=== PATIENT | female | born 1960 | race African-American/Black ===

== ENCOUNTER 2017-08-20 15:54 | Inpatient (IN) | payer MEDICAID, OTHER ==
[~2017-08-20] VITALS: Ht 170.2 cm; Wt 120.2 kg
[~2017-08-20 15:54] MED LIST: ATARAX25 MG PO; GABAPENTIN100 MG ORAL; IBUPROFEN600 MG PO; KEPPRA500 M4 ORAL; METFORMIN HCL500 MG PO; NORVASC2.5 MG PO; VICODIN 5-5001 EACH PO; [UNRECOGNIZED DRUG - REMARK]; [UNRECOGNIZED DRUG - REMARK]
[2017-08-20] MEDS ORDERED: Sodium Chloride 500ML 500 ML IV ONE (16:12)
--- NOTE | 2017-08-20 16:20 | Emergency Room Report ---
History of Present Illness General Chief Complaint: Seizure Source: Patient Present Illness HPI Patient presents with complaints of seizure activity Patient has been seizure-free for about 9 months she is on multiple medications including Keppra Neurontin and Topamax Patient had a seizure yesterday As she has had them in the past she did not go to the emergency room today she was at a Had several seizures back to back And was sent to the emergency room at this time patient complains of mild headache denies any chest pain or short of breath denies any back or flank pain denies any dysuria frequency Patient reports that 7 days ago she began taking an [id number] vitamin which she reports is 4 and 1 however is unclear regarding the medications name she reports not feeling well since then having sensations of questionable pre- seizure activity Allergies: Coded Allergies: No Known Allergies (Unverified , 03/11/12) Patient History Past Medical History: see triage record Pertinent Family History: none Reviewed Nursing Documentation: PMH: Agreed, PSxH: Agreed Nursing Documentation-PMH Past Medical History: No History, Except For Hx Hypertension: Yes Hx Diabetes: Yes Hx Cancer: Yes - bilateral mastecomy done 2015 Hx Gastrointestinal Problems: Yes Hx Seizures: Yes Review of Systems All Other Systems: negative except mentioned in HPI Physical Exam Vital Signs Date Time Temp Pulse Resp B/P (MAP) Pulse Ox O2 Delivery O2 Flow Rate FiO2 08/20/17 15:40 98.0 97 20 142/92 97 Room Air 98.1 Sp02 EP Interpretation: reviewed, normal General Appearance: well appearing, no apparent distress Head: normocephalic, atraumatic Eyes: bilateral eye PERRL, bilateral eye EOMI ENT: hearing grossly normal, normal pharynx, TMs + canals normal, uvula midline Neck: full range of motion, supple, no meningismus, no bony tend Respiratory: lungs clear, normal breath sounds, no rhonchi, no respiratory distress, no retraction, no accessory muscle use Cardiovascular #1: normal peripheral pulses, regular rate, rhythm, no edema, no gallop, no JVD, no murmur Gastrointestinal: normal bowel sounds, non tender, soft, no mass, no organomegaly, non-distended, no guarding, no hernia, no pulsatile mass, no rebound Genitourinary: no CVA tenderness Musculoskeletal: normal inspection Neurologic: oriented x3, responsive, postmaster III-XII nml as tested, motor strength/ tone normal, sensory intact Psychiatric: mood/affect normal Skin: normal color, no rash, warm/dry, palpation normal Lymphatic: normal inspection, no adenopathy Medical Decision Making Diagnostic Impression: Primary Impression: Epileptic seizure, generalized ER Course Patient has had multiple seizures today Was further medicated in the emergency room Initial workup does not show any obvious acute pathology Patient does not show any focal deficits and given the multiple seizures was admitted for further care Labs Test 08/20/17 16:07 08/20/17 16:34 Urine Color Pale yellow Urine Appearance Clear Urine pH 7 (4.5-8.0) Urine Specific [place] 1.005 (1.005-1.035) Urine Protein Negative (NEGATIVE) Urine Glucose (UA) Negative (NEGATIVE) Urine Ketones Negative (NEGATIVE) Urine Occult Blood Negative (NEGATIVE) Urine Nitrite Negative (NEGATIVE) Urine Bilirubin Negative (NEGATIVE) Urine Urobilinogen Normal MG/DL (0.0-1.0) Urine Leukocyte Esterase 2+ (NEGATIVE) Urine RBC 0 /HPF (0 - 2) Urine WBC 5-10 /HPF (0 - 2) Urine Squamous Epithelial Cells Moderate /LPF (NONE/OCC) Urine Bacteria Moderate /HPF (NONE) Urine Opiates Screen Negative (NEGATIVE) Urine Barbiturates Screen Negative (NEGATIVE) Phencyclidine (PCP) Screen Negative (NEGATIVE) Urine Amphetamines Screen Negative (NEGATIVE) Urine Benzodiazepines Screen Negative (NEGATIVE) Urine Cocaine Screen Negative (NEGATIVE) Urine Marijuana (THC) Screen Negative (NEGATIVE) White Blood Count 5.6 K/UL (4.8-10.8) Red Blood Count 4.75 M/UL (4.20-5.40) Hemoglobin 13.7 G/DL (12.0-16.0) Hematocrit 40.3 % (37.0-47.0) Mean Corpuscular Volume 85 FL (80-99) Mean Corpuscular Hemoglobin 28.8 PG (27.0-31.0) Mean Corpuscular Hemoglobin Concent 33.9 G/DL (32.0-36.0) Red Cell Distribution Width 14.2 % (11.6-14.8) Platelet Count 232 K/UL (150-450) Mean Platelet Volume 9.6 FL (6.5-10.1) Neutrophils (%) (Auto) 57.7 % (45.0-75.0) Lymphocytes (%) (Auto) 32.8 % (20.0-45.0) Monocytes (%) (Auto) 5.8 % (1.0-10.0) Eosinophils (%) (Auto) 2.4 % (0.0-3.0) Basophils (%) (Auto) 1.3 % (0.0-2.0) Sodium Level 145 MMOL/L (136-145) Potassium Level 3.9 MMOL/L (3.5-5.1) Chloride Level 108 MMOL/L (98-107) Carbon Dioxide Level 28 MMOL/L (21-32) Anion Gap 9 mmol/L (5-15) Blood Urea Nitrogen 11 mg/dL (7-18) Creatinine 0.9 MG/DL (0.55-1.30) Estimat Glomerular Filtration Rate > 60 mL/min (>60) Glucose Level 94 MG/DL (74-106) Calcium Level 9.5 MG/DL (8.5-10.1) Total Bilirubin 0.3 MG/DL (0.2-1.0) Aspartate Amino Transf (AST/SGOT) 17 U/L (15-37) Alanine Aminotransferase (ALT/SGPT) 25 U/L (12-78) Alkaline Phosphatase 118 U/L (46-116) Total Creatine Kinase 108 U/L (26-140) Creatine Kinase MB 1.8 NG/ML (0.0-3.6) Creatine Kinase MB Relative Index 1.6 Troponin I 0.000 ng/mL (0.000-0.056) Total Protein 7.9 G/DL (6.4-8.2) Albumin 3.6 G/DL (3.4-5.0) Globulin 4.3 g/dL Albumin/Globulin Ratio 0.8 (1.0-2.7) Rhythm Strip Diag. Results EP Interpretation: yes Rate: 67 Rhythm: NSR, no PVC's, no ectopy Chest X-Ray Diagnostic Results Chest X-Ray Diagnostic Results : Chest X-Ray Ordered: Yes # of Views/Limited/Complete: 1 View Indication: Chest Pain EP Interpretation: Yes Interpretation: no consolidation, no effusion, no pneumothorax Impression: No acute disease Electronically Signed by: Juan Pike, DO CT/MRI/US Diagnostic Results CT/MRI/US Diagnostic Results : Impression CT head no acute disease Last Vital Signs Date Time Temp Pulse Resp B/P (MAP) Pulse Ox O2 Delivery O2 Flow Rate FiO2 08/20/17 15:58 98 20 Room Air 08/20/17 15:40 98.0 142/92 97 98.1 Status: improved Disposition: ADMITTED INPATIENT Condition: Serious Juan Pike DO Aug 20, 2017 16:19
[2017-08-20 16:30] VITALS: BP 131/80
[2017-08-20 16:39] LABS: APPEARANCE,URINE CLEAR; BILIRUBIN, URINE NEGATIVE (NEGATIVE); COLOR,URINE PALE YELLOW; GLUCOSE, URINE (UA) NEGATIVE (NEGATIVE); KETONES,URINE NEGATIVE (NEGATIVE); LEUKOCYTE ESTERASE ,URINE 2+ (NEGATIVE); NITRITE,URINE NEGATIVE (NEGATIVE); PH,URINE 7 (4.5-8.0); PROTEIN,URINE NEGATIVE (NEGATIVE); UROBILINOGEN,URINE NORMAL MG/DL (0.0-1.0)
[2017-08-20 16:53] LABS: BASOPHILS % (AUTO) 1.3 % (0.0-2.0); EOSINOPHILS % (AUTO) 2.4 % (0.0-3.0); HEMATOCRIT 40.3 % (37.0-47.0); HEMOGLOBIN 13.7 G/DL (12.0-16.0); LYMPHOCYTES % (AUTO) 32.8 % (20.0-45.0); MEAN CORPUSCULAR VOLUME 85 FL (80-99); MONOCYTES % (AUTO) 5.8 % (1.0-10.0); NEUTROPHILS % (AUTO) 57.7 % (45.0-75.0); PLATELET COUNT 232 K/UL (150-450); RED BLOOD COUNT 4.75 M/UL (4.20-5.40); RED CELL DISTRIBUTION WIDTH 14.2 % (11.6-14.8); WHITE BLOOD COUNT 5.6 K/UL (4.8-10.8)
[2017-08-20] MEDS ORDERED: Acetaminophen 500mg (ES) tab ORAL ONE (17:02)
[2017-08-20] MEDS ORDERED: LORazepam Inj 2mg/ml 1ml IV ONE (17:15)
[2017-08-20] MEDS ORDERED: levETIRAcetam 500mg/NS100ml 100 ML IVPB ONE (17:15)
[2017-08-20] MEDS ORDERED: cefTRIAXone 1 GM in NS 55 ML IVPB ONE (17:30)
[2017-08-20 17:36] LABS: ANION GAP 9 mmol/L (5-15); BLOOD UREA NITROGEN 11 mg/dL (7-18); CALCIUM 9.5 MG/DL (8.5-10.1); CARBON DIOXIDE 28 MMOL/L (21-32); CHLORIDE 108 MMOL/L (98-107); CREATININE 0.9 MG/DL (0.55-1.30); POTASSIUM 3.9 MMOL/L (3.5-5.1); SODIUM 145 MMOL/L (136-145)
[2017-08-20 17:56] LABS: ALANINE AMINOTRANSFERASE 25 U/L (12-78); ALBUMIN 3.6 G/DL (3.4-5.0); ALBUMIN/GLOBULIN RATIO 0.8 (1.0-2.7); ASPARTATE AMINO TRANSFERASE 17 U/L (15-37); BILIRUBIN,TOTAL 0.3 MG/DL (0.2-1.0); CREATINE KINASE 108 U/L (26-140)
[2017-08-20 17:57] LABS: ALKALINE PHOSPHATASE 118 U/L (46-116)
[2017-08-20 18:07] LABS: CKMB 1.8 NG/ML (0.0-3.6)
[2017-08-20 18:30] VITALS: BP 140/79
[2017-08-20] MEDS ORDERED: GABAPENTIN600 MG ORAL (18:59)
[2017-08-20] MEDS ORDERED: MONTELUKAST SOD10 MG ORAL (18:59)
[2017-08-20] MEDS ORDERED: ALBUTEROL SULF8.5 GM INH (18:59)
[2017-08-20] MEDS ORDERED: METOPROLOL TAR100 MG ORAL (18:59)
[2017-08-20] MEDS ORDERED: VITAMIN D250000 UNI1 ORAL (18:59)
[2017-08-20] MEDS ORDERED: AMITRIPTYLINE25 MG ORAL (18:59)
[2017-08-20] MEDS ORDERED: METFORMIN HCL1000 M1 ORAL (18:59)
[2017-08-20] MEDS ORDERED: OMEPRAZOLE20 M2 ORAL (18:59)
[2017-08-20] MEDS ORDERED: MEGARED OMEGA-1 EAC1 PO (18:59)
[2017-08-20] MEDS ORDERED: TOPIRAMATE100 MG ORAL (18:59)
[2017-08-20] MEDS ORDERED: VITAMIN B-12500 MCG ORAL (18:59)
[2017-08-20] MEDS ORDERED: PROAIR HFA8.5 GM INH (18:59)
[2017-08-20] MEDS ORDERED: QVAR7.3 GM INH (18:59)
[2017-08-20] MEDS ORDERED: DOCUSATE SODIU100 MG ORAL (18:59)
[2017-08-20] MEDS ORDERED: ZYRTEC10 MG ORAL (18:59)
[2017-08-20] MEDS ORDERED: ASPIRIN EC81 MG ORAL (18:59)
[2017-08-20] MEDS ORDERED: LEVETIRACETAM500 MG ORAL (18:59)
[2017-08-20 19:04] VITALS: BP 142/89
[2017-08-20] MEDS ORDERED: Zolpidem 5mg tab ORAL PRN (20:15)
[2017-08-20] MEDS ORDERED: Docusate 100mg cap ORAL PRN (20:15)
[2017-08-20] MEDS ORDERED: LORazepam Inj 2mg/ml 1ml IV PRN (20:15)
[2017-08-20] MEDS: NovoLOG Insulin Flexpen SUBQ SCH (22:12)
[2017-08-21] VITALS: BP 119/79
[2017-08-21] MEDS ORDERED: metFORMIN 500mg tab ORAL SCH (06:30)
[2017-08-21] MEDS: NovoLOG Insulin Flexpen SUBQ SCH ×4 (06:54→21:51)
[2017-08-21] MEDS: Qvar 40mcg Inhaler 6.8 gm INH SCH ×2 (07:39→19:20)
[2017-08-21 08:01] LABS: ALANINE AMINOTRANSFERASE 23 U/L (12-78); ALBUMIN 2.9 G/DL (3.4-5.0); ALBUMIN/GLOBULIN RATIO 0.7 (1.0-2.7); ALKALINE PHOSPHATASE 117 U/L (46-116); ANION GAP 10 mmol/L (5-15); ASPARTATE AMINO TRANSFERASE 18 U/L (15-37); BILIRUBIN,TOTAL 0.3 MG/DL (0.2-1.0); BLOOD UREA NITROGEN 14 mg/dL (7-18); CALCIUM 8.9 MG/DL (8.5-10.1); CARBON DIOXIDE 24 MMOL/L (21-32); CHLORIDE 106 MMOL/L (98-107); CHOLESTEROL 185 MG/DL (< 200); CREATININE 0.9 MG/DL (0.55-1.30); HDL CHOLESTEROL 72 MG/DL (40-60); POTASSIUM 3.8 MMOL/L (3.5-5.1); SODIUM 140 MMOL/L (136-145); TRIGLYCERIDES 116 MG/DL (30-150)
[2017-08-21] MEDS: Aspirin EC 81mg tab ORAL SCH (08:59)
[2017-08-21] MEDS: Montelukast 10mg tablet ORAL SCH (08:59)
[2017-08-21] MEDS: Vitamin B-12 500mcg tab ORAL SCH (08:59)
[2017-08-21 09:00] VITALS: BP 139/79
--- NOTE | 2017-08-21 10:18 | Diagnostic Imaging Report ---
Indication: Chest pain Technique: XRAY Chest 1v Comparison: None Findings: Low lung volumes exaggerate heart size and pulmonary markings. Heart appears borderline enlarged. There is no definite focal airspace consolidation, pleural effusion or pneumothorax. No acute osseous abnormality seen. There are degenerative changes of the spine. Surgical clips noted in the bilateral axilla. Impression: Limited exam as low lung volumes. Question borderline cardiomegaly and mild vascular congestion, possibly artifactual. Repeat exam with improved inspiratory effort recommended for more reliable assessment.
[2017-08-21 12:00] VITALS: BP 128/82
--- NOTE | 2017-08-21 13:26 | Diagnostic Imaging Report ---
Indication: Seizure Technique: Continuous helical CT scanning of the head was performed utilizing automated exposure control without intravenous contrast material. Axial and coronal reconstructions were obtained. Comparison: None CT dose: Total DLP 1340.49 mGycm; CTDI vol 70.38 mGy Findings: There is no acute intracranial hemorrhage, mass effect or cortical edema. The ventricles, cisterns and sulci are within normal limits for age. Visualized mastoid air cells and paranasal sinuses are unremarkable. No focal lesions of the bony calvarium or soft tissues of the scalp are seen. Midline parafalcine dural calcifications are noted without significant mass effect. IMPRESSION: No evidence of acute intracranial hemorrhage, mass effect or cortical edema. MRI may be obtained for more sensitive evaluation as clinically indicated. This corresponds with the statrad preliminary report. The CT scanner at [facility] is accredited by the [employer] and the scans are performed using protocols designed to limit radiation exposure to as low as reasonably achievable to attain images of sufficient resolution adequate for diagnostic evaluation.
--- NOTE | 2017-08-21 15:57 | History & Physical ---
History and Physical History & Physicial HP dictated # [id number] ROX TAYLOR Aug 21, 2017 15:57
--- NOTE | 2017-08-21 16:41 | Neurology Progress Note ---
Objective Physical Exam Last Vital Signs Date Time Temp Pulse Resp B/P (MAP) Pulse Ox O2 Delivery O2 Flow Rate FiO2 08/21/17 13:27 97.9 08/21/17 12:00 83 20 128/82 97 08/21/17 07:39 Room Air 21 Laboratory Tests Test 08/21/17 05:10 Sodium Level 140 MMOL/L (136-145) Potassium Level 3.8 MMOL/L (3.5-5.1) Chloride Level 106 MMOL/L (98-107) Carbon Dioxide Level 24 MMOL/L (21-32) Anion Gap 10 mmol/L (5-15) Blood Urea Nitrogen 14 mg/dL (7-18) Creatinine 0.9 MG/DL (0.55-1.30) Estimat Glomerular Filtration Rate > 60 mL/min (>60) Glucose Level 159 MG/DL (74-106) H Hemoglobin A1c 7.8 % (4.3-6.0) H Calcium Level 8.9 MG/DL (8.5-10.1) Total Bilirubin 0.3 MG/DL (0.2-1.0) Aspartate Amino Transf (AST/SGOT) 18 U/L (15-37) Alanine Aminotransferase (ALT/SGPT) 23 U/L (12-78) Alkaline Phosphatase 117 U/L (46-116) H Total Protein 6.8 G/DL (6.4-8.2) Albumin 2.9 G/DL (3.4-5.0) L Globulin 3.9 g/dL Albumin/Globulin Ratio 0.7 (1.0-2.7) L Triglycerides Level 116 MG/DL (30-150) Cholesterol Level 185 MG/DL (< 200) LDL Cholesterol 103 mg/dL (<100) H HDL Cholesterol 72 MG/DL (40-60) H Cholesterol/HDL Ratio 2.6 (3.3-4.4) L Impression/Recommendations Problems: (1) Seizure disorder Status: unchanged Recommendations #[id number] MARY BETH MODI Aug 21, 2017 16:41
[2017-08-21] MEDS: metFORMIN 500mg tab ORAL SCH (16:46)
[2017-08-21] MEDS ORDERED: LORazepam Inj 2mg/ml 1ml IV PRN (19:45)
--- NOTE | 2017-08-21 23:00 | History and Physical Report ---
DATE OF ADMISSION: 08/20/2017 CHIEF COMPLAINT: Multiple seizures. HISTORY OF PRESENT ILLNESS: This is a 57-year-old female, with history of seizures. The patient said that couple of weeks ago, she had a seizure and again two days prior to admission, yesterday, on the day of admission. Finally, paramedics came and brought her to the emergency room. The patient was admitted for further care. PAST MEDICAL HISTORY: Includes history of diabetes mellitus. The patient was on insulin for a while, but then she lost a lot of weight and she gave up her insulin, but recently she went back on insulin. She said that she was in the hospital with pneumonia and they put her on steroids and that is when the sugar became uncontrolled again. She is also taking metformin in addition to insulin. ALLERGIES: No known drug allergies. SOCIAL HISTORY: The patient lives at home. No history of smoking or alcohol abuse. REVIEW OF SYSTEMS: Just positive for back pain, which she has had for a couple of months now and it prevents her from sleeping. PHYSICAL EXAMINATION: GENERAL: The patient is a pleasant female, in no acute distress. VITAL SIGNS: Blood pressure 128/82, pulse 83, respirations 20, and temperature 97.9. HEENT: [place] conjunctivae. Anicteric sclerae. NECK: Supple. LUNGS: Clear to auscultation. HEART: S1 and S2 without murmurs or rubs. ABDOMEN: Soft and nontender. EXTREMITIES: No cyanosis or edema. LABORATORY FINDINGS: The chemistry panel shows serum sodium 140, potassium 3.8, chloride 106, CO2 24, BUN is 14, and creatinine 0.9. Hemoglobin A1c of 7.8. LDL is 103. HDL of 72. Triglycerides 116. Albumin is 2.9. UA shows 5 to 10 wbc's per high-power field and moderate bacteria. ASSESSMENT: This is a 57-year-old female, who was admitted with repeated seizures. She has also diabetes, which is uncontrolled with some high hemoglobin A1c. There is also urinary tract infection at this time. PLAN: The patient's urine culture will be checked. Neurology consultation will be obtained for seizures. The patient will be on p.r.n. Ativan for any seizure activity in addition to her regular medications. Antibiotics will be started. Antonino Antonio M.D. DR: SHANTA JOB#: [id number] CC: ALIDA
[2017-08-22] VITALS (7 sets, daily range): BP systolic 117–130; BP diastolic 69–82
--- NOTE | 2017-08-22 00:15 | Consultation ---
DATE OF CONSULTATION: 08/21/2017 NEUROLOGICAL CONSULTATION CONSULTING PHYSICIAN: Marcus Shore M.D. REQUESTING PHYSICIAN: Antonino Antonio M.D. HISTORY OF PRESENT ILLNESS: The patient is a 57-year-old lady seen in neurological consultation to evaluate exacerbation of seizures. The patient informed me that she started to develop seizures in a year of 2012 just after having a bilateral mastectomy done. Her last seizure was approximately a year go. The patient is maintained on Topamax 200 mg a day, Keppra 2000 mg a day, and gabapentin 2400 mg daily with no changes in doses lately and she was taking medication on time. She developed exacerbation of seizures with first episode occurred while she was at a . She feels that she had another two more episodes. Her episodes are described as sudden onset of left side of the face twisting to the left. She has staring spell and then she had neck twisting to the left side and body started to shake. During these episodes, she has no full complete loss of consciousness. She still feels foggy, but remembers some of it. She has time to sit down and to protect herself from falling. No urine or bowel incontinence. Episodes are quite stereotypical although in the past, she would have frequent episodes of only body shake without loss of consciousness and what is felt to be epileptic in origin, but since she started on Topamax, these type of episodes stopped. As she was arrived to emergency room, she reported that a week ago, she was started on ngae-uqx-kztyioj vitamin supplements, but there was no changes in her treatment. Otherwise, she was complaining of mild headache. Her vital signs were stable. Blood pressure 142/92 and temperature 98.0. CAT scan of the brain was negative. No pathology detected. Her laboratory work revealed normal CBC study. Chemistry panel was unremarkable except blood sugar 159 and alkaline phosphatase 118. Her CBC study was normal and toxicology panel was negative. Chest x-ray, questionable borderline cardiomegaly, mild vascular congestion. PAST MEDICAL HISTORY: History of breast CA and required bilateral mastectomy. She has hypertension, diabetes type 2, degenerative joint disease, and severe right knee pain. MEDICATIONS: The treatment included amlodipine, Elavil 25 at bedtime, albuterol, and aspirin. Supplements, vitamin B12 and vitamin D. She is on Neurontin 1200 mg b.i.d., ibuprofen 600 mg t.i.d., Keppra 1000 b.i.d., metformin 1000 daily, metoprolol, montelukast, omeprazole, and Topamax 100 mg b.i.d. ALLERGIES: None reported. SOCIAL HISTORY: No alcohol. No drug abuse. Nonsmoker. FAMILY HISTORY: Noncontributory. REVIEW OF SYSTEMS: A 12-point review of symptom was obtained was negative except those in HPI. Currently, she is with mild headaches and muscle aches in upper back and neck. She has unsteady gait since she had mastectomies. Denies chest pain or palpitations. No respiratory problems. Denies abdominal pain or discomfort. PHYSICAL EXAMINATION: GENERAL: A well-developed, moderately obese female, not in acute distress, lying comfortably in bed. VITAL SIGNS: Stable. She is afebrile. HEENT: Head normocephalic. No evidence of trauma. Eyes, ears, and throat are clear. NECK: Supple. No meningeal signs. MUSCULOSKELETAL EXAMINATION: Unremarkable. There is no deformities. Peripheral pulses 1+ and symmetric. MENTAL STATUS: Alert and oriented x3 with no evidence of aphasia or apraxia. Cognitive function normal. CRANIAL NERVE II: Pupils both responding to light and accommodation. Extraocular movement intact. No nystagmus. CRANIAL NERVE V: Normal corneal responses. CRANIAL NERVE VII: No facial asymmetry. CRANIAL NERVE VIII: Normal hearing. CRANIAL NERVES IX THROUGH XII: Within normal limits. MOTOR EXAMINATION: Normal muscle tone. Strength 5/5 in all extremities. No involuntary movement. Deep tendon reflexes 1+ and symmetric with downgoing toes on both sides. SENSORY EXAM: Normal to pinprick and light touch. GAIT: Not tested, but reported able to ambulate without assistance and using cane. IMPRESSION: 1. Chronic partial complex seizure disorder exacerbation. 2. Hypertension. 3. Diabetes type 2. 4. Degenerative joint disease. 5. Breast cancer status post bilateral mastectomy. RECOMMENDATIONS: Increase Topamax up to 200 mg b.i.d. Continue with Keppra 2000 mg daily. Observe for any paroxysmal events. Pain management with Neurontin, Motrin, and Tylenol. Thank you for allowing me to see this interesting patient in neurological consultation. Marcus Shore M.D. DR: JEANNETTE JOB#: [id number] CC:
[2017-08-22] MEDS: sitaGLIPtin 50mg tab ORAL SCH (06:45)
[2017-08-22] MEDS: NovoLOG Insulin Flexpen SUBQ SCH ×4 (06:47→20:56)
[2017-08-22] MEDS: Vitamin B-12 500mcg tab ORAL SCH (10:01)
[2017-08-22] MEDS: metFORMIN 500mg tab ORAL SCH ×2 (10:01→16:56)
[2017-08-22] MEDS: Aspirin EC 81mg tab ORAL SCH (10:01)
[2017-08-22] MEDS: Montelukast 10mg tablet ORAL SCH (10:01)
[2017-08-22] MEDS: Qvar 40mcg Inhaler 6.8 gm INH SCH ×2 (10:15→18:41)
--- NOTE | 2017-08-22 10:47 | Neurology Progress Note ---
Interim History Interim History ROS Limited/Unobtainable: No Complaints: weakness tiredness last nite x1 sz given Ativan 1mg Events: in bed drowsy Objective Physical Exam Last Vital Signs Date Time Temp Pulse Resp B/P (MAP) Pulse Ox O2 Delivery O2 Flow Rate FiO2 08/22/17 10:02 86 117/69 08/22/17 10:00 97.7 08/22/17 08:00 20 95 08/22/17 04:00 Room Air 08/21/17 19:20 21 General: well developed, well nourished, no acute distress Head: normocophalic, atraumatic Neck: no rigidity EENT: benign Neurologic Exam Mental Status: oriented x4, normal cognition, other - drowsy Speech: normal speech, no dysarthia Language: normal language, no aphasia Cranial Nerve II: fundus normal, visual vega, no papilledema Cranial Nerves III, IV, : PERRLA, EOMI, pupils Cranial Nerve V: normal facial sensations, temporales function normal, masseters function normal, pterygoids function normal Cranial Nerve VII: no facial asymmetry, normal facial expressions Cranial Nerve VIII: normal hearing, no nystagmus Cranial Nerve IX: normal palate elevation, gag response Cranial Nerve X: no voice hoarseness Cranial Nerve XI: SCM symmetric, trapezii function normal Cranial Nerve XII: tongue midline, no tongue atrophy/fasciculations Motor System: normal muscle tone, strength 5/5, no involuntary movement, no muscle wasting Sensory: normal pinprick, normal light touch, normal position sense, normal graphesthesia Coordination: normal finger to nose bilaterally, normal heel to stone bilaterally, negative Romberg test Deep Tendon Reflexes: 0 bicep (L), 0 bicep (R), 0 tricep (L), 0 tricep (R), 0 brachioradialis (L), 0 brachioradialis (R), 0 knee (L), 0 knee (R), 0 ankle (L) , 0 ankle (R) Reflexes: flexor plantar (L), flexor plantar (R) Stance: normal, other Gait: stable, normal regular, heel + toe gait, other Impression/Recommendations Problems: (1) Seizure disorder Status: unchanged Recommendations #[id number] topamax 200mg bid keppra 1250 bid ativan 1mg q 2hr prn d/w attending MARY BETH MODI Aug 22, 2017 10:47
--- NOTE | 2017-08-22 11:22 | General Progress Note ---
Assessment/Plan Assessment/Plan adjust seizure meds start Cipro Discussed with Dr Shore Endocrine consult Subjective Allergies: Coded Allergies: No Known Allergies (Unverified , 03/11/12) Subjective had seizures last night Objective Last 24 Hour Vital Signs Date Time Temp Pulse Resp B/P (MAP) Pulse Ox O2 Delivery O2 Flow Rate FiO2 08/22/17 10:02 86 117/69 08/22/17 10:02 86 117/69 08/22/17 10:00 97.7 08/22/17 08:00 97.7 86 20 117/69 95 97.7 08/22/17 04:00 97.2 80 18 121/75 94 Room Air 97.2 08/22/17 00:00 97.6 77 16 130/76 97 97.6 08/21/17 21:48 88 138/85 08/21/17 19:20 84 18 98 Room Air 21 08/21/17 19:20 98 Room Air 21 08/21/17 19:20 84 18 98 Room Air 21 08/21/17 13:27 97.9 08/21/17 12:28 97.9 08/21/17 12:00 97.9 83 20 128/82 97 97.9 Intake and Output 08/21/17 08/22/17 19:00 07:00 Intake Total 480 ml Balance 480 ml Intake Oral 480 ml # Voids 3 4 Height (Feet): 5 Height (Inches): 7.00 Weight (Pounds): 265 Cardiovascular: normal rate Respiratory/Chest: lungs clear Edema: no edema noted ROX Castillo 19, 2018 11:22
[2017-08-22] MEDS: Topiramate 100mg tab ORAL SCH ×2 (11:48→20:55)
[2017-08-23 03:31] VITALS: BP 126/68
[2017-08-23] MEDS: sitaGLIPtin 50mg tab ORAL SCH (05:42)
[2017-08-23] MEDS: NovoLOG Insulin Flexpen SUBQ SCH ×4 (05:43→20:05)
[2017-08-23 07:46] LABS: BASOPHILS % (AUTO) 0.7 % (0.0-2.0); EOSINOPHILS % (AUTO) 3.2 % (0.0-3.0); HEMATOCRIT 36.8 % (37.0-47.0); HEMOGLOBIN 12.5 G/DL (12.0-16.0); LYMPHOCYTES % (AUTO) 46.7 % (20.0-45.0); MEAN CORPUSCULAR VOLUME 86 FL (80-99); MONOCYTES % (AUTO) 6.7 % (1.0-10.0); NEUTROPHILS % (AUTO) 42.7 % (45.0-75.0); PLATELET COUNT 202 K/UL (150-450); RED BLOOD COUNT 4.28 M/UL (4.20-5.40); RED CELL DISTRIBUTION WIDTH 14.1 % (11.6-14.8); WHITE BLOOD COUNT 4.6 K/UL (4.8-10.8)
[2017-08-23] MEDS: Aspirin EC 81mg tab ORAL SCH (08:01)
[2017-08-23] MEDS: Vitamin B-12 500mcg tab ORAL SCH (08:02)
[2017-08-23] MEDS: Topiramate 100mg tab ORAL SCH ×2 (08:02→20:46)
[2017-08-23 08:03] LABS: ANION GAP 7 mmol/L (5-15); BLOOD UREA NITROGEN 12 mg/dL (7-18); CALCIUM 8.6 MG/DL (8.5-10.1); CARBON DIOXIDE 27 MMOL/L (21-32); CHLORIDE 108 MMOL/L (98-107); CREATININE 0.8 MG/DL (0.55-1.30); POTASSIUM 3.5 MMOL/L (3.5-5.1); SODIUM 142 MMOL/L (136-145)
[2017-08-23] MEDS: Montelukast 10mg tablet ORAL SCH (08:03)
[2017-08-23 08:08] VITALS: BP 126/82
[2017-08-23] MEDS: Qvar 40mcg Inhaler 6.8 gm INH SCH ×2 (08:23→18:00)
[2017-08-23] MEDS: metFORMIN 500mg tab ORAL SCH ×2 (09:00→17:08)
[2017-08-23 12:00] VITALS: BP 132/80
--- NOTE | 2017-08-23 12:47 | Neurology Progress Note ---
Interim History Interim History ROS Limited/Unobtainable: No Complaints: feel better Events: no sz noted Objective Physical Exam Last Vital Signs Date Time Temp Pulse Resp B/P (MAP) Pulse Ox O2 Delivery O2 Flow Rate FiO2 08/23/17 12:00 98.0 81 15 132/80 98 98.0 08/23/17 08:26 Room Air 21 Laboratory Tests Test 08/23/17 05:25 White Blood Count 4.6 K/UL (4.8-10.8) L Red Blood Count 4.28 M/UL (4.20-5.40) Hemoglobin 12.5 G/DL (12.0-16.0) Hematocrit 36.8 % (37.0-47.0) L Mean Corpuscular Volume 86 FL (80-99) Mean Corpuscular Hemoglobin 29.1 PG (27.0-31.0) Mean Corpuscular Hemoglobin Concent 33.9 G/DL (32.0-36.0) Red Cell Distribution Width 14.1 % (11.6-14.8) Platelet Count 202 K/UL (150-450) Mean Platelet Volume 8.8 FL (6.5-10.1) Neutrophils (%) (Auto) 42.7 % (45.0-75.0) L Lymphocytes (%) (Auto) 46.7 % (20.0-45.0) H Monocytes (%) (Auto) 6.7 % (1.0-10.0) Eosinophils (%) (Auto) 3.2 % (0.0-3.0) H Basophils (%) (Auto) 0.7 % (0.0-2.0) Sodium Level 142 MMOL/L (136-145) Potassium Level 3.5 MMOL/L (3.5-5.1) Chloride Level 108 MMOL/L (98-107) H Carbon Dioxide Level 27 MMOL/L (21-32) Anion Gap 7 mmol/L (5-15) Blood Urea Nitrogen 12 mg/dL (7-18) Creatinine 0.8 MG/DL (0.55-1.30) Estimat Glomerular Filtration Rate > 60 mL/min (>60) Glucose Level 145 MG/DL (74-106) H Calcium Level 8.6 MG/DL (8.5-10.1) General: well developed, well nourished, no acute distress Head: normocophalic, atraumatic Neck: no rigidity EENT: benign Neurologic Exam Mental Status: oriented x4, normal cognition, other - drowsy Speech: normal speech, no dysarthia Language: normal language, no aphasia Cranial Nerve II: fundus normal, visual vega, no papilledema Cranial Nerves III, IV, : PERRLA, EOMI, pupils Cranial Nerve V: normal facial sensations, temporales function normal, masseters function normal, pterygoids function normal Cranial Nerve VII: no facial asymmetry, normal facial expressions Cranial Nerve VIII: normal hearing, no nystagmus Cranial Nerve IX: normal palate elevation, gag response Cranial Nerve X: no voice hoarseness Cranial Nerve XI: SCM symmetric, trapezii function normal Cranial Nerve XII: tongue midline, no tongue atrophy/fasciculations Motor System: normal muscle tone, strength 5/5, no involuntary movement, no muscle wasting Sensory: normal pinprick, normal light touch, normal position sense, normal graphesthesia Coordination: normal finger to nose bilaterally, normal heel to stone bilaterally, negative Romberg test Deep Tendon Reflexes: 0 bicep (L), 0 bicep (R), 0 tricep (L), 0 tricep (R), 0 brachioradialis (L), 0 brachioradialis (R), 0 knee (L), 0 knee (R), 0 ankle (L) , 0 ankle (R) Reflexes: flexor plantar (L), flexor plantar (R) Stance: normal, other Gait: stable, normal regular, heel + toe gait, other Impression/Recommendations Problems: (1) Seizure disorder Status: unchanged Recommendations #[id number] topamax 200mg bid keppra 1250 bid ativan 1mg q 2hr prn d/w staff ok d/c home MARY BETH MODI Aug 23, 2017 12:47
--- NOTE | 2017-08-23 14:44 | General Progress Note ---
Assessment/Plan Assessment/Plan adjust seizure meds start Cipro Discussed with Dr Shore Endocrine consult start Celebrex Subjective Allergies: Coded Allergies: No Known Allergies (Unverified , 03/11/12) Subjective C/O back pain Objective Last 24 Hour Vital Signs Date Time Temp Pulse Resp B/P (MAP) Pulse Ox O2 Delivery O2 Flow Rate FiO2 08/23/17 12:00 98.0 81 15 132/80 98 98.0 08/23/17 09:00 98.1 08/23/17 08:26 82 18 97 Room Air 21 08/23/17 08:25 81 18 97 Room Air 21 08/23/17 08:08 98.1 82 18 126/82 97 Room Air 98.1 08/23/17 08:02 78 126/68 08/23/17 08:01 97.3 08/23/17 08:01 78 126/68 08/23/17 03:31 97.3 78 20 126/68 93 Room Air 97.3 08/22/17 23:24 97.3 83 20 126/70 96 Room Air 97.3 08/22/17 20:54 98 123/77 08/22/17 19:17 97.2 98 20 123/77 95 Room Air 97.2 08/22/17 18:42 94 Room Air 21 08/22/17 18:41 97 18 94 Room Air 21 08/22/17 18:41 97 18 94 Room Air 21 08/22/17 15:52 98.1 69 18 125/82 97 98.1 Intake and Output 08/22/17 08/23/17 19:00 07:00 Intake Total 570 ml Balance 570 ml Intake Oral 570 ml # Voids 3 3 # Bowel Movements 1 Laboratory Tests 08/23/17 05:25: White Blood Count 4.6L, Red Blood Count 4.28, Hemoglobin 12.5, Hematocrit 36.8L , Mean Corpuscular Volume 86, Mean Corpuscular Hemoglobin 29.1, Mean Corpuscular Hemoglobin Concent 33.9, Red Cell Distribution Width 14.1, Platelet Count 202, Mean Platelet Volume 8.8, Neutrophils (%) (Auto) 42.7L, Lymphocytes ( %) (Auto) 46.7H, Monocytes (%) (Auto) 6.7, Eosinophils (%) (Auto) 3.2H, Basophils (%) (Auto) 0.7, Sodium Level 142, Potassium Level 3.5, Chloride Level 108H, Carbon Dioxide Level 27, Anion Gap 7, Blood Urea Nitrogen 12, Creatinine 0.8, Estimat Glomerular Filtration Rate > 60, Glucose Level 145H, Calcium Level 8.6 Height (Feet): 5 Height (Inches): 7.00 Weight (Pounds): 265 Cardiovascular: normal rate Respiratory/Chest: normal breath sounds Edema: no edema noted Generalized ROX TAYLOR Aug 23, 2017 14:44
[2017-08-23 16:00] VITALS: BP 117/71
[2017-08-23] MEDS: celeBREX 100mg Cap **SURGERY PATIENTS ONLY ORAL SCH (16:18)
--- NOTE | 2017-08-23 16:30 | Consultation ---
DATE OF CONSULTATION: 08/23/2017 ENDOCRINOLOGY CONSULTATION CONSULTING PHYSICIAN: Peter López M.D. REFERRING PHYSICIAN: Antonino Antonio M.D. REASON FOR CONSULTATION: Diabetes management. HISTORY OF PRESENT ILLNESS: The patient is a 57-year-old female with a longstanding history of diabetes, as an outpatient on oral regimen as well as low-dose NPH and regular insulin, presented to the hospital with seizure episode. Endocrinology was consulted in order to assist in the management of diabetes. PAST MEDICAL HISTORY: 1. Type 2 diabetes, managed by metformin and NPH and regular. 2. Seizure disorder. 3. Hypertension. 4. Obesity. ALLERGIES TO MEDICATIONS: None. SOCIAL HISTORY: No smoking, alcohol, or drug use. REVIEW OF SYSTEMS: A 12-point review of systems was performed and pertinent positives and negatives are as mentioned in the history of present illness. PHYSICAL EXAMINATION: GENERAL: She is awake and alert. VITAL SIGNS: Blood pressure 126/68, heart rate 78, respiratory rate of 20, and temperature of 97.3 degrees. HEENT: Pupils are equal and reactive to light and accommodation. Sclerae are anicteric. NECK: No JVD. No thyromegaly. No bruits. LUNGS: Clear. HEART: Regular rate and rhythm. ABDOMEN: Positive bowel sounds. Soft. EXTREMITIES: No clubbing, cyanosis, or edema. LABORATORY VALUES: Sodium 145, potassium 3.9, chloride 108, bicarbonate 28, BUN 11, creatinine 0.9, and glucose of 194. Hemoglobin A1c 7.8. LDL 103 . DIAGNOSES: 1. Seizure disorder. 2. Diabetes, out of control. 3. Obesity. 4. Hypertension. PLAN: The patient diabetes is managed by metformin 500 mg b.i.d. and Januvia 50 mg daily. I will double the dose on both of these agents up to metformin 1000 mg b.i.d. and Januvia 100 mg daily. Continue with NovoLog insulin sliding scale. As an outpatient, I doubt the patient needs to be on insulin. We shall continue with this combination of metformin and Januvia maximum dose. Thank you, Dr. Antonio, for the courtesy of this consultation. Peter López M.D. DR: Amanda JOB#: [id number] CC: ALIDA
--- NOTE | 2017-08-23 18:44 | Cardiology Report ---
APPROVED REPORT EKG Measurement Heart [id number] Normal sinus rhythm Nonspecific T wave abnormality Abnormal ECG
[2017-08-23 19:58] VITALS: BP 134/78
[2017-08-24 04:00] VITALS: BP 130/76
[2017-08-24] MEDS: NovoLOG Insulin Flexpen SUBQ SCH ×3 (05:33→16:26)
--- NOTE | 2017-08-24 07:27 | General Progress Note ---
Assessment/Plan Problem List: (1) Diabetes mellitus ICD Codes: E11.9 - Type 2 diabetes mellitus without complications SNOMED: 28217908 (2) Epileptic seizure, generalized ICD Codes: G40.309 - Generalized idiopathic epilepsy and epileptic syndromes, not intractable, without status epilepticus SNOMED: 99353853 (3) Seizure disorder ICD Codes: G40.909 - Epilepsy, unspecified, not intractable, without status epilepticus SNOMED: 823303713 Assessment/Plan continue Metformin 1000 mg bid + Januvia 100 mg daily NISS only during stay no need for insulin after DC Subjective Allergies: Coded Allergies: No Known Allergies (Unverified , 03/11/12) All Systems: reviewed and negative except above Subjective events noted - interval notes reviewed BG values are stable Objective Last 24 Hour Vital Signs Date Time Temp Pulse Resp B/P (MAP) Pulse Ox O2 Delivery O2 Flow Rate FiO2 08/24/17 04:00 97.8 82 18 130/76 97 97.8 08/23/17 20:02 84 117/71 08/23/17 19:58 97.6 84 18 134/78 96 97.6 08/23/17 19:00 Room Air 08/23/17 19:00 81 18 97 Room Air 21 08/23/17 16:00 97.9 84 18 117/71 98 Room Air 97.9 08/23/17 12:00 98.0 81 15 132/80 98 98.0 08/23/17 09:00 98.1 08/23/17 08:26 82 18 97 Room Air 21 08/23/17 08:25 81 18 97 Room Air 21 08/23/17 08:08 98.1 82 18 126/82 97 Room Air 98.1 08/23/17 08:02 78 126/68 08/23/17 08:01 97.3 08/23/17 08:01 78 126/68 Intake and Output 08/23/17 08/24/17 19:00 07:00 Intake Total 840 ml 340 ml Balance 840 ml 340 ml Intake Oral 840 ml 340 ml # Voids 3 2 Height (Feet): 5 Height (Inches): 7.00 Weight (Pounds): 265 General Appearance: no apparent distress Neck: normal alignment Cardiovascular: normal rate Respiratory/Chest: lungs clear Abdomen: normal bowel sounds Pelvis: normal external exam Edema: no edema noted Arm (L), no edema noted Arm (R), no edema noted Leg (L), no edema noted Leg (R), no edema noted Pedal (L), no edema noted Pedal (R), no edema noted Generalized Objective Current Medications Medications (Trade) Dose Ordered Sig/Edward Route PRN Reason Start Time Stop Time Status Last Admin Dose Admin Acetaminophen (Tylenol) 650 mg Q4H PRN ORAL Mild Pain (Pain Scale 1-3) 08/20/17 20:15 09/19/17 20:14 08/23/17 08:01 Amitriptyline HCl (Elavil) 25 mg BEDTIME ORAL 08/20/17 21:00 09/19/17 20:59 08/23/17 20:00 Amlodipine Besylate (Norvasc) 5 mg DAILY ORAL 08/21/17 09:00 09/20/17 08:59 08/23/17 08:01 Aspirin (Ecotrin) 81 mg DAILY ORAL 08/21/17 09:00 09/20/17 08:59 08/23/17 08:01 Beclomethasone Dipropionate (Qvar 40 Inhaler) 1 puff TWICE A DAY INH 08/21/17 09:00 09/20/17 08:59 08/23/17 08:23 Celecoxib (CeleBREX) 100 mg TWICE A DAY ORAL 08/23/17 16:00 09/22/17 15:59 08/23/17 16:18 Cetirizine HCl (ZyrTEC) 10 mg DAILY ORAL 08/21/17 09:00 09/20/17 08:59 08/23/17 08:01 Ciprofloxacin (Cipro 250mg tab) 250 mg EVERY 12 HOURS ORAL 08/22/17 13:00 08/29/17 12:59 08/23/17 20:00 Cyanocobalamin (Vitamin B-12) 500 mcg DAILY ORAL 08/21/17 09:00 09/20/17 08:59 08/23/17 08:02 Dextrose (Dextrose 50%) STAT PRN IV Hypoglycemia 08/20/17 20:15 09/19/17 20:14 Dextrose (Dextrose 50%) STAT PRN IV Hypoglycemia 08/20/17 20:15 09/19/17 20:14 Docusate Sodium (Colace) 100 mg DAILY PRN ORAL Constipation 08/20/17 20:15 09/19/17 20:14 08/23/17 10:08 Gabapentin (Neurontin) 1,200 mg BID ORAL 08/21/17 09:00 09/20/17 08:59 08/23/17 17:08 Insulin Aspart (NovoLOG) BEFORE MEALS AND HS SUBQ 08/20/17 21:00 09/19/17 20:59 08/24/17 05:33 Lansoprazole (Prevacid) 30 mg BID ORAL 08/22/17 18:00 09/21/17 17:59 08/23/17 17:08 Levetiracetam (Keppra) 1,250 mg TWICE A DAY ORAL 08/22/17 18:00 09/21/17 17:59 08/23/17 17:08 Lorazepam (Ativan 2mg/ml 1ml) 2 mg Q2H PRN IV For Seizures 08/20/17 20:15 08/27/17 20:14 08/21/17 21:02 Metformin HCl (Glucophage) 1,000 mg BID ORAL 08/23/17 09:00 09/22/17 08:59 08/23/17 17:08 Metoprolol Tartrate (Lopressor) 100 mg EVERY 12 HOURS ORAL 08/20/17 21:00 09/19/17 20:59 08/23/17 08:02 Montelukast Sodium (Singulair) 10 mg DAILY ORAL 08/21/17 09:00 09/20/17 08:59 08/23/17 08:03 Sitagliptin Phosphate (Januvia) 100 mg ACBREAKFAST ORAL 08/24/17 06:30 09/23/17 06:29 08/24/17 05:32 Topiramate (Topamax) 200 mg EVERY 12 HOURS ORAL 08/22/17 11:15 09/21/17 11:14 08/23/17 20:46 Zolpidem Tartrate (Ambien) 5 mg HSPRN PRN ORAL Insomnia 08/20/17 20:15 08/27/17 20:14 Item Value Date Time Bedside Blood Glucose 133 mg/dl H 08/24/17 0541 Bedside Blood Glucose 130 mg/dl H 08/23/17 2100 Bedside Blood Glucose 114 mg/dl 08/23/17 1654 Bedside Blood Glucose 151 mg/dl H 08/23/17 1200 Bedside Blood Glucose 143 mg/dl H 08/23/17 0551 CHARLIE PERRY Aug 24, 2017 07:27
[2017-08-24 08:00] VITALS: BP 126/78
[2017-08-24] MEDS: celeBREX 100mg Cap **SURGERY PATIENTS ONLY ORAL SCH ×2 (08:37→17:40)
[2017-08-24] MEDS: Aspirin EC 81mg tab ORAL SCH (08:37)
[2017-08-24] MEDS: Topiramate 100mg tab ORAL SCH (08:37)
[2017-08-24] MEDS: Vitamin B-12 500mcg tab ORAL SCH (08:38)
[2017-08-24] MEDS: metFORMIN 500mg tab ORAL SCH ×2 (08:38→17:41)
[2017-08-24] MEDS: Montelukast 10mg tablet ORAL SCH (08:38)
[2017-08-24] MEDS: Qvar 40mcg Inhaler 6.8 gm INH SCH (09:45)
[2017-08-24 12:00] VITALS: BP 128/90
[2017-08-24] MEDS ORDERED: CELEBREX100 MG ORAL (15:24)
[2017-08-24] MEDS ORDERED: KEPPRA500 M3 ORAL (15:24)
[2017-08-24] MEDS ORDERED: GLUCOPHAGE500 MG ORAL (15:24)
[2017-08-24] MEDS ORDERED: JANUVIA100 MG ORAL (15:24)
[2017-08-24] MEDS ORDERED: TOPIRAMATE100 MG ORAL (15:24)
--- NOTE | 2017-08-24 15:30 | Consultation ---
Consult Note Assessment/Plan Dc dictated # [id number] ROX TAYLOR Aug 24, 2017 15:30
[2017-08-24 16:00] VITALS: BP 131/81
--- NOTE | 2017-08-25 05:08 | Discharge Summary ---
DATE OF ADMISSION: 08/20/2017 DATE OF DISCHARGE: 08/24/2017 CHIEF COMPLAINT: Multiple seizures. HISTORY OF PRESENT ILLNESS: This is a 57-year-old female, who was admitted with multiple seizures. She had a history of seizures from before. HOSPITAL COURSE: The patient was seen by Dr. Marcus Shore for Neurology and her seizure medications were increased and got under control. She did have 1 episode of seizure just the night when she was admitted again, but since then she has not had any episodes. She was also found to have elevated hemoglobin A1c level and she has a history of diabetes. Her hemoglobin A1c was 7.8, and she was taking only metformin 500 mg b.i.d. She was started on Januvia [address] López saw the patient in Endocrine consultation and recommended to increase the metformin to 1000 mg b.i.d., and Januvia 200 mg daily. This was done. The patient had also urinary tract infection for which she was started on antibiotics. She had history of hypertension and she was maintained on blood pressure medications. Her blood pressure was controlled, the last 1 was 128/90. She also has a history of chronic back pain and that she did not want Vicodin because she would have side effects, so I started on Celebrex 100 mg b.i.d. with some improvement. DISCHARGE DIAGNOSES: 1. Repeated seizures. 2. Diabetes mellitus, uncontrolled. 3. Back pain. 4. Degenerative joint disease of spine. 5. Urinary tract infection. 6. Hypertension. DISCHARGE MEDICATIONS: Please refer to discharge medication list. DIET: Diabetic diet. Antonino Antonio M.D. DR: ESTRELLA JOB#: [id number] CC:
== END 2017-08-24 18:35 | disposition home or self-care (01) | DRG 53 ==
LOC: EDBD 15:54 → EMR 16:30 → 4W 17:10 → EDBEDREQ 17:51 → 4W 08-21 11:22
DX: G40.209 Localization-related (focal) (partial) symptomatic epilepsy and epileptic syndromes with complex partial seizures, not intractable, without status epilepticus (principal); E11.65 Type 2 diabetes mellitus with hyperglycemia; I10 Essential (primary) hypertension; M19.90 Unspecified osteoarthritis, unspecified site; Z85.3 Personal history of malignant neoplasm of breast; Z90.13 Acquired absence of bilateral breasts and nipples; N39.0 Urinary tract infection, site not specified; Z79.4 Long term (current) use of insulin; G89.29 Other chronic pain; M54.9 Dorsalgia, unspecified; M25.561 Pain in right knee; E66.9 Obesity, unspecified
CPT/HCPCS: 36415; 70450; 71045; 80048; 80053; 80061; 80299; 80307; 81003; 82550; 82553; 82962; 83036; 84484; 85025; 87086; 93005; 94640; 94760; 99285; J1815